=== PATIENT | male | born 1965 | race Caucasian/White ===

== ENCOUNTER 2016-09-21 16:49 | Inpatient (IN) | payer OTHER ==
[~2016-09-21] VITALS: Ht 167.6 cm; Wt 90.7 kg
--- NOTE | 2016-09-21 16:59 | NUR ---
PT C/O CASAS THAT STARTED A COUPLE OF HOURS AGO.. PT ALSO C/O HAVING NO FEELING IN HIS LEFT ARM SINCE HE WOKE THIS AM. PT STATES HE ALSO HAS NUMBNESS IN HIS RIGHT HAND ONLY "FEELS LIKE THEY ARE ASLEEP". NO PROBLEMS WITH BILAT LOWER EXT. PT AMBULATED TO TRIAGE. PT DENIES CHEST PAIN OR SOB
--- NOTE | 2016-09-21 18:58 | NUR ---
PA STUDENT AT BEDSIDE FOR EVAL. PT REPORTS CASAS THAT STARTED "A FEW HOURS HOME THEATER EXPERIENCE EXPERT." PT DID NOT TAKE ANYTHING AT HOME FOR CASAS HOME THEATER EXPERIENCE EXPERT. "I JUST CAME STRAIGHT HERE." PT ALSO COMPLAINING OF BILATERAL UPPER EXTREMITIES "FEELING LIKE THEY'RE ASLEEP." PT REPORTS THAT HE IS UNABLE TO GRASP ANYTHING. PT ABLE TO GRAB AND HOLD BAG THAT HE BROUGHT WITH HIM FROM HOME WITHOUT ISSUE. AWAKE/ALERT WITH EASY WOB. A&0X3.
[2016-09-21] MEDS ORDERED: ATORVASTATIN CA40 M1 PO (19:09)
[2016-09-21] MEDS ORDERED: MULTI-DAY VITA1 EACH PO (19:10)
[2016-09-21] MEDS ORDERED: LOSARTAN POTAS100 M1 PO (19:10)
[2016-09-21] MEDS ORDERED: METFORMIN HCL1000 M1 PO (19:10)
--- NOTE | 2016-09-21 19:11 | ED HEADACHE COMPLAINT ---
History of Present Illness General Chief Complaint: Headache Stated Complaint: HEADACHE, L & R ARM NUMBNESS SINCE THIS AM Source: patient Exam Limitations: no limitations Vital Signs & Intake/Output Vital Signs & Intake/Output Vital Signs Date Time Temp Pulse Resp B/P B/P Pulse O2 O2 Flow FiO2 Mean Ox Delivery Rate 09/22 2147 97.2 92 20 148/85 95 Room Air 09/21 1906 Room Air 09/21 1700 97.4 116 16 161/91 96 Room Air ED Intake and Output 09/22 0000 09/21 1200 Intake Total Output Total Balance Patient 203 lb Weight Weight Reported by Patient Measurement Method Allergies Coded Allergies: No Known Allergies (09/21/16) Reconcile Medications Atorvastatin Calcium 40 MG TABLET 1 TAB PO DAILY CHOLESTEROL (Reported) Losartan Potassium 100 MG TABLET 1 TAB PO DAILY HEART/BP (Reported) Metformin HCl 1,000 MG TABLET 1 TAB PO BID DM (Reported) Multivitamin (Multi-Day Vitamins) 1 EACH TABLET 1 TAB PO DAILY SUPPLEMENT ( Reported) Triage Note: PT C/O CASAS THAT STARTED A COUPLE OF HOURS AGO.. PT ALSO C/O HAVING NO FEELING IN HIS LEFT ARM SINCE HE WOKE THIS AM. PT STATES HE ALSO HAS NUMBNESS IN HIS RIGHT HAND ONLY "FEELS LIKE THEY ARE ASLEEP". NO PROBLEMS WITH BILAT LOWER EXT. PT AMBULATED TO TRIAGE Triage Nurses Notes Reviewed? yes Onset: Abrupt Duration: hour(s): Timing: single episode today Quality/Severity: moderate No Modifying Factors: none Associated Symptoms: numbness and weakness HPI: 51 yo gentleman presents with left arm weakness and numbness as well as right hand weakness and numbness. "I woke up this morning and I realize that I couldn 't move my left hand... my right hand is affected too... It also feels like numbness and tingling." Past History Travel History Traveled to [place] past 21 day No Medical History Any Pertinent Medical History? see below for history Cardiovascular: hypertension, hyperlipidemia Endocrine: diabetes Surgical History Surgical History: none Psychosocial History What is your primary language Ukrainian Tobacco Use: Never used ETOH Use: heavy use Illicit Drug Use: denies illicit drug use Family History Hx Contributory? No Review of Systems Review of Systems Constitutional: Reports: no symptoms. Eyes: Reports: no symptoms. Ears, Nose, Throat, Mouth: Reports: no symptoms. Respiratory: Reports: no symptoms. Cardiovascular: Reports: no symptoms. Gastrointestinal/Abdominal: Reports: no symptoms. Genitourinary: Reports: no symptoms. Musculoskeletal: Reports: no symptoms. Skin: Reports: no symptoms. Neurological/Psychological: Reports: no symptoms. Hematologic/Endocrine: Reports: no symptoms. Endocrine: Reports: no symptoms. Immunologic/Allergic: Reports: no symptoms. All Other Systems: Reviewed and Negative Physical Exam Physical Exam General Appearance: well developed/nourished, mild distress Head: atraumatic, normal appearance Eyes: Bilateral: normal appearance, PERRL, EOMI. Ears, Nose, Throat: normal pharynx, normal ENT inspection Neck: normal inspection, supple, full range of motion Respiratory: normal breath sounds, chest non-tender, no respiratory distress, quiet respiration, lungs clear Cardiovascular: regular rate/rhythm Gastrointestinal: normal bowel sounds, soft, non-tender, no organomegaly Back: normal inspection Extremities: normal inspection, normal capillary refill, normal range of motion Psychiatric: awake, alert, oriented x 3 Cranial Nerves: LEFT HAND WITH 4/5 STRENGTH, LEFT ELBOW 4+/5 STRENGTH RIGHT HAND 4+/5 STRENGTH, RIGHT ELBOW 5/5 STRENGTH. PT WITH SUBJECTIVE DECREASED SENSATION ALONG LATERAL ASPECT OF LEFT ARM DECREASED SENSATION OF RIGHT HAND. STRENGTH, DTRS, LIGHT TOUCH OF LOWER EXTREMITIES INTACT BILATERALLY Coordination/Gait: MILD UNCOORDINATION OF LEFT HAND Reflexes: 1+: bicep (R), bicep (L). Skin: intact, normal color, warm/dry Core Measures Severe Sepsis Present: No Septic Shock Present: No Progress Differential Diagnosis: cva vs tia Plan of Care: Orders Procedure Date/time Status Heart Healthy Diet 09/22 B Active LIPID PANEL 09/22 599 Active CBC WITHOUT DIFFERENTIAL 09/22 599 Active BASIC ELECTROLYTES PLUS BUN&CR 09/22 599 Active Pathway - chart 09/21 2306 Active House Staff 09/21 230 Active Admit to inpatient 09/22 2255 Active [id number] DOPPLER 09/21 2252 Active FingerStick- Glucose 09/21 2252 Active ECHOCARDIOGRAM 09/21 2252 Active Patient Data 09/21 2144 Active Saline Lock 09/21 2122 Active Misc Message 09/21 2122 Active ED Holding Orders 09/21 2122 Active Vital Signs 09/21 2122 Active Code Status 09/21 2122 Active TROPONIN LEVEL 09/21 1932 Complete PARTIAL THROMBOPLASTIN TIME 09/21 1932 Complete PROTHROMBIN TIME 09/21 1932 Complete COMPREHENSIVE METABOLIC PANEL 09/21 1932 Complete CBC WITHOUT DIFFERENTIAL 09/21 1932 Complete EKG 09/21 1932 Active VTE Mechanical Prophylaxis 09/21 UNK Active Current Medications Sig/Nadia Start time Last Medication Dose Stop Time Status Admin Atorvastatin Calcium 80 MG 1700 09/22 1700 AC (Lipitor) Aspirin 81 MG DAILY 09/22 1000 AC (Aspirin) Multivitamins 1 TAB DAILY 09/22 1000 AC Therapeutic (Theragran-M Vitamins Tabs) Insulin Aspart 0 TIDAC 09/22 0800 AC (NovoLOG) Acetaminophen 650 MG Q6P PRN 09/21 2315 AC (Tylenol) Acetaminophen 1,000 MG Q6P PRN 09/21 2315 AC (Ofirmev) Oxycodone/ 1 TAB Q6P PRN 09/21 2315 AC Acetaminophen (Percocet) Sodium Chloride 1,000 ML .Q10H 09/21 2300 AC 09/21 (Normal Saline 0.9%) 09/22 1859 2355 Laboratory Tests 09/21/162031: Anion Gap 16, Estimated GFR > 60, BUN/Creatinine Ratio 24.3, Glucose 174 H, Calcium 9.4, Total Bilirubin 0.8, AST 36, ALT 40, Alkaline Phosphatase 47, Troponin I < 0.01, Total Protein 7.8, Albumin 4.7, Globulin 3.1, Albumin/ Globulin Ratio 1.5, PT 12.4, INR 1.18 H, APTT 27, CBC w Diff NO MAN DIFF REQ, RBC 4.87, MCV 89.8, MCH 30.7, RDW 12.7, MPV 7.6, Gran % 79.5 H, Lymphocytes % 14.6 L, Monocytes % 5.1, Eosinophils % 0.1, Basophils % 0.7, Absolute Granulocytes 11.9 H, Absolute Lymphocytes 2.2, Absolute Monocytes 0.8 H, Absolute Eosinophils 0, Absolute Basophils 0.1, PUBS MCHC 34.2 Diagnostic Imaging: Viewed by Me: Radiology Read, CT Scan. Discussed w/RAD: Radiology Read, CT Scan. Radiology Impression: head ct/cervical ct... no acute fx, no acute bleed Initial ED EKG: normal axis, normal intervals, normal p-waves, normal QRS complex, normal sinus rhythm Comments: PATIENT: LOLLY LOZANO PRESENT AGE: 51 PATIENT ACCOUNT NO: [id number] : 65 LOCATION: [facility] ORDERING PHYSICIAN: DAVIDA MCLEAN MD SERVICE DATE: 09/21/16 EXAM TYPE: CAT - CT CERV SPINE WO IV CONTRAST; CT HEAD WO IV CONTRAST EXAMINATION: CT HEAD AND CERVICAL SPINE. CLINICAL INFORMATION: Left-handed weakness and numbness. COMPARISON: No relevant prior imaging available. TECHNIQUE: Camp Attendant images were obtained. A CT acquisition of the head and cervical spine was performed without intravenous administration of contrast. Data was reformatted into multiplanar images at the acquisition workstation. DLP: 960.6 mGy-cm. FINDINGS: Head: There is no acute intracranial hemorrhage or abnormal extra-axial collection. No intracranial mass effect or midline shift. Lateral and third ventricles are proportionate to the subarachnoid spaces. No hydrocephalus. Cottrell-white matter differentiation is preserved and there is no evidence of acute territorial infarct. The calvarium and skull base are intact. Mastoid air cells and middle ear cavities are well aerated. Visualized paranasal sinuses are well-aerated. Globes and orbits are symmetric. Cervical spine: There is nonspecific straightening of cervical lordosis. Vertebral alignment is otherwise maintained in the sagittal dimension. Vertebral body heights are preserved. There is no evidence of acute fracture or subluxation. No abnormal prevertebral soft tissue swelling. There is narrowing of the intervertebral disc spaces at multiple levels with associated disc osteophyte spurring. Grossly no evidence of canal compromise. Soft tissues of the neck including the thyroid gland are unremarkable. Lung apices are clear. IMPRESSION: Head: No acute intracranial hemorrhage. Cervical spine: There is multilevel degenerative spondylosis of the cervical spine. No evidence of acute fracture or traumatic subluxation. DICTATED BY: ANASTASIA TRAN MD DATE/TIME DICTATED:09/21/162039 VEHICLE INSURANCE AGENT:EULALIA DATE/TIME TRANSCRIBED:09/21/162039 CONFIDENTIAL, DO NOT COPY WITHOUT APPROPRIATE AUTHORIZATION. <Electronically signed in Other Vendor System> SIGNED BY: ANASTASIA TRAN MD 09/21 Departure Departure Disposition: HOME OR SELF CARE Condition: Stable Clinical Impression Primary Impression: CVA (cerebral vascular accident) Referrals: UNKNOWN (PCP/Family) Departure Forms: Customer Survey General Discharge Information Admission Note Spoke With: TONY SAHU MD Documentation of Exam: Documentation of any treatments & extenuating circumstances including Concerns Regarding Discharge (functional status, medication knowledge or non-compliance, living conditions, etc.) that warrant an admission rather than observation: pt merits admission for neuro evaluation, aspirin, mri/mra.
--- NOTE | 2016-09-21 20:35 | RADIOLOGY REPORT ---
EXAMINATION:\H\ \N\XR CHEST CLINICAL INFORMATION: Concern for acute stroke. COMPARISON: None. TECHNIQUE: Single AP view of the chest was obtained. FINDINGS: The lungs are hypoinflated but clear without focal airspace consolidation. No pleural effusions or pneumothoraces are identified. Cardiomediastinal contours are within normal limits. Soft tissues are unremarkable. No acute osseous abnormality is identified. IMPRESSION: No acute pulmonary process.
[2016-09-21 20:41] LABS: ABSOLUTE BASOPHIL COUNT 0.1 /CUMM (0.0-0.2); ABSOLUTE EOSINOPHIL COUNT 0 /CUMM (0.0-0.7); ABSOLUTE GRANULOCYTE CT 11.9 /CUMM (1.4-6.5); ABSOLUTE LYMPH COUNT 2.2 /CUMM (1.2-3.4); ABSOLUTE MONOCYTE COUNT 0.8 /CUMM (0.10-0.60); BASOPHIL % 0.7 % (0.0-2.0); EOSINOPHIL % 0.1 % (0-5); GRANULOCYTE % 79.5 % (42.2-75.2); HEMATOCRIT 43.7 % (42-52); MEAN CORPUSCULAR HGB 30.7 PG (27.0-31.0); MEAN CORPUSCULAR HGB CONC 34.2 G/DL (33.0-37.0); MEAN CORPUSCULAR VOLUME 89.8 FL (80.0-94.0); MEAN PLATELET VOLUME 7.6 FL (7.4-10.4); PLATELET COUNT 323 /CUMM (130-400); RBC DISTRIBUTION WIDTH 12.7 % (11.5-14.5); RED BLOOD CELL CT 4.87 /CUMM (4.70-6.10); WHITE BLOOD CELL COUNT 14.9 /CUMM (4.8-10.8)
[2016-09-21 20:51] LABS: PT 12.4 SEC (9.4-12.5); PTT 27 SEC (25-37)
--- NOTE | 2016-09-21 20:51 | CT SCAN REPORT ---
EXAMINATION: CT HEAD AND CERVICAL SPINE. CLINICAL INFORMATION: Left-handed weakness and numbness. COMPARISON: No relevant prior imaging available. TECHNIQUE: Job Press Feeder images were obtained. A CT acquisition of the head and cervical spine was performed without intravenous administration of contrast. Data was reformatted into multiplanar images at the acquisition workstation. DLP: 960.6 mGy-cm. FINDINGS: Head: There is no acute intracranial hemorrhage or abnormal extra-axial collection. No intracranial mass effect or midline shift. Lateral and third ventricles are proportionate to the subarachnoid spaces. No hydrocephalus. Cottrell-white matter differentiation is preserved and there is no evidence of acute territorial infarct. The calvarium and skull base are intact. Mastoid air cells and middle ear cavities are well aerated. Visualized paranasal sinuses are well-aerated. Globes and orbits are symmetric. Cervical spine: There is nonspecific straightening of cervical lordosis. Vertebral alignment is otherwise maintained in the sagittal dimension. Vertebral body heights are preserved. There is no evidence of acute fracture or subluxation. No abnormal prevertebral soft tissue swelling. There is narrowing of the intervertebral disc spaces at multiple levels with associated disc osteophyte spurring. Grossly no evidence of canal compromise. Soft tissues of the neck including the thyroid gland are unremarkable. Lung apices are clear. IMPRESSION: Head: No acute intracranial hemorrhage. Cervical spine: There is multilevel degenerative spondylosis of the cervical spine. No evidence of acute fracture or traumatic subluxation.
--- NOTE | 2016-09-21 21:43 | NUR ---
PT RESTING COMFORTABLY, OFFERS NO ADDITIONAL COMPLAINTS.
--- NOTE | 2016-09-21 23:03 | NUR ---
MOVED TO ROOM 4 AND PLACED ON HOSPITAL BED FOR COMFORT.
--- NOTE | 2016-09-21 23:26 | History & Physical ---
CHER FUCHS 09/21/16 2326: General Information and HPI MD Statement: I have seen and personally examined LOLLY PANIAGUA and documented this H&P. The patient is a 51 year old M who presented with a patient stated chief complaint of left arm weakness, numbness and right hand numbness since morning Source of Information: patient Exam Limitations: no limitations History of Present Illness: This is a 51-year-old male with past medical history significant for hypertension, hyperlipidemia, diabetes mellitus presented to Hospital emergency department with chief complaint of left arm,hand weakness, numbness and right hand numbness. According to the patient, he reported left arm and hand weakness associated with numbness and tingling sensation, which started all of a sudden early in the morning after waking up. He couldn't grasp or squeeze. He feels as if he lost his strength. Also he complains right hand numbness and tingling sensation. Denies any weakness in lower extremities. Patient denies any sensory changes. Also reports headache, 3 out of 10, frontal, nonradiating. Not associated with any fever, chills, neck pain. Denies any neck stiffness. Denies any trauma. Patient denies any vision changes or gait abnormalities. Denies any syncopal episodes/ seizures/ loss of consciousness/dizziness or lightheadedness. Denies any chest pain, racing heart, difficulty breathing, cough, nausea, vomiting, abdominal pain, change in bladder or bowel habits. He follows his primary care doctor for blood sugars management. He usually checks blood sugars daily at home which ranges between 150 to 230. He couldnt provide much information about HbA1c levels. Patient denies any smoking. He has history of alcohol intake 3-4 beers 4 times in a week. Denies any other illicit drug abuse. He lives with his girlfriend. Patient has family history significant for colon cancer and father has heart attack at 70s. Allergies/Medications Allergies: Coded Allergies: No Known Allergies (09/21/16) Home Med list Atorvastatin Calcium 40 MG TABLET 1 TAB PO DAILY CHOLESTEROL (Reported) Losartan Potassium 100 MG TABLET 1 TAB PO DAILY HEART/BP (Reported) Metformin HCl 1,000 MG TABLET 1 TAB PO BID DM (Reported) Multivitamin (Multi-Day Vitamins) 1 EACH TABLET 1 TAB PO DAILY SUPPLEMENT ( Reported) Compliance With Home Meds: GOOD Past History Travel History Traveled to [place] past 21 day No Medical History Cardiovascular: hypertension, hyperlipidemia Endocrine: diabetes Surgical History Surgical History: none Past Family/Social History Psychosocial History Smoking Status: Never Smoked ETOH Use: heavy use Illicit Drug Use: denies illicit drug use Review of Systems Review of Systems Constitutional: Denies: chills, malaise, weakness, unexplained weight loss. EENTM: Denies: see HPI. Cardiovascular: Denies: chest pain, edema, orthopena, palpitations, peripheral edema, syncope. Respiratory: Denies: cough, hemoptysis, orthopnea, short of breath, sputum production. GI: Denies: abdominal pain, bloating, constipation, diarrhea, nausea, bloody stool, vomiting. Genitourinary: Denies: discharge, dysuria, frequency, hematuria. Musculoskeletal: Denies: back pain, gout, joint pain. Skin: Denies: see HPI. Neurological/Psychological: Reports: headache, numbness, paresthesia, tingling, weakness. Denies: anxiety, ataxia, confusion, depressed, dementia, emotional problems, tremors. Exam & Diagnostic Data Last 24 Hrs of Vital Signs/I&O Vital Signs Date Time Temp Pulse Resp B/P B/P Pulse O2 O2 Flow FiO2 Mean Ox Delivery Rate 09/21 2148 97.2 92 20 148/85 95 Room Air 09/21 1906 Room Air 09/21 1700 97.4 116 16 161/91 96 Room Air Intake & Output 09/22 0800 05/02 0000 09/21 1600 Intake Total Output Total Balance Patient 92.079 kg Weight Weight Reported by Patient Measurement Method Physical Exam General Appearance Alert, Oriented X3, Cooperative, No Acute Distress Skin No Rashes, No Breakdown HEENT Atraumatic, PERRLA, EOMI, Mucous Membr. moist/pink Neck Supple, No JVD, No thryomegaly Lymphatic Axillary nl, Cervical nl Cardiovascular Regular Rate, Normal S1, Normal S2, No Murmurs Lungs Clear to Auscultation, Normal Air Movement Abdomen Normal Bowel Sounds, Soft, No Tenderness Neurological Normal Gait, Normal Speech, Normal Tone, Sensation Intact, Cranial Nerves 3-12 NL, Reflexes 2+, strength 5/5 in le strength 4/5 left upper ext strength 5/5 right upper ext Extremities No Clubbing, No Cyanosis, No Edema Vascular Normal Pulses, Pulses Symmetrical Last 24 Hrs of Labs/Jacky: Laboratory Tests 09/21/162031: Anion Gap 16, Estimated GFR > 60, BUN/Creatinine Ratio 24.3, Glucose 174 H, Calcium 9.4, Total Bilirubin 0.8, AST 36, ALT 40, Alkaline Phosphatase 47, Troponin I < 0.01, Total Protein 7.8, Albumin 4.7, Globulin 3.1, Albumin/ Globulin Ratio 1.5, PT 12.4, INR 1.18 H, APTT 27, CBC w Diff NO MAN DIFF REQ, RBC 4.87, MCV 89.8, MCH 30.7, RDW 12.7, MPV 7.6, Gran % 79.5 H, Lymphocytes % 14.6 L, Monocytes % 5.1, Eosinophils % 0.1, Basophils % 0.7, Absolute Granulocytes 11.9 H, Absolute Lymphocytes 2.2, Absolute Monocytes 0.8 H, Absolute Eosinophils 0, Absolute Basophils 0.1, PUBS MCHC 34.2 Assessment/Plan Assessment: This is a 51-year-old male with past medical history significant for hypertension, hyperlipidemia, diabetes mellitus presented to Hospital emergency department with chief complaint of left arm,hand weakness, numbness and right hand numbness. Vitals on admission, 97.4, heart rate 116, surgery rate 16, blood pressure 161/ 91 saturating well on room air. Labs on admission-leukocytosis 14.9, hemoglobin 15, platelets 323. BEP normal Glucose [address] was normal. Cervical CT showed degenerative spondylosis of cervical spine Chest x-ray was normal Patient received 325 mg aspirin in the emergency room Problem list 1. Acute CVA versus TIA 2. Hypertension 3. Diabetes mellitus 4. Hyperlipidemia Acute CVA versus TIA According to the patient, he reported left arm and hand weakness associated with numbness and tingling sensation, which started all of a sudden early in the morning after waking up. He couldn't grasp or squeeze. He feels as if he lost his strength. Also he complains right hand numbness and tingling sensation. Denies any weakness in lower extremities. Patient denies any sensory changes. * Most possibly acute CVA versus TIA. Patient has all the risk factors- hypertension, uncontrolled diabetes, hyperlipidemia. * Admitted to telemetry floor for further management. * Monitor vitals closely every shift * Maintain oxygen saturations above 90% * Monitor for any dysrhythmias * Neuro checks * He is out of window for TPA * Consider MRI head and neck , * CT was negative for any hemorrhage or infarct * We'll continue aspirin 81 mg daily * Atorvastatin 80 mg daily * Check HbA1c * check lipid panel * CAROTID ARTERY ultrasound * Echocardiogram * Gentle IV hydration * Neurology consult * PTOT Hypertension * Patient usually takes losartan 100 mg daily at home * As we are considering his presentation as an ischemic CVA, our goal systolic blood pressure should be between 150-220 to allow for permissive HTN-We will hold off his antihypertensives for now. * We will investigate the patency of his carotids with a carotid U/S. Diabetes mellitus * On metformin thousand milligrams twice a day at home * We'll hold off metformin * Accu-Cheks * Insulin NovoLog sliding scale Hyperlipidemia * Atorvastatin 80 mg daily FULL CODE Heart healthy diet ALPS for dvt ppx avoiding heparin in case he dose have an ischemic CVA - risk of conversion pain path . As Ranked By This Provider Problem List: 1. CVA (cerebral vascular accident) Core Measures/Miscellaneous Acute Coronary Syndrome ACS Diagnosis: No Cerebrovascular Accident CVA/TIA Diagnosis: Yes NIH Stroke Scale: Total 0 Date Last Known Well: 09/21/16 Time Last Known Well: 0600 Neurological S/S of CVA: Weakness of Limb Symptom Start Date: 09/21/16 Symptom Start Time: 0600 Reason tPA not ordered Medical Contraindication Bedside Swallow Eval Done: Yes Result of Evaluation: Pass Antithrombotic: No No Antithrombotic d/t: Medical Contraindication AFIB: No Aflutter: No Anticoagulant: No No Anticoag d/t: Medical Contraindication Evidence of Atherosclerosis: No LDL Assessed Within 24 Hours: Yes Currently on Statin: Yes No Statin d/t: Medical Contraindications Rehab Needs Assessed: Medical Eval for Rehab PT Consult Ordered: Yes Congestive Heart Failure CHF Diagnosis: No Venous Thromboembolism VTE Risk Factors: Age > 40 No [facility] VTE prophylaxis d/t: No contraindications No VTE Pharm Prophylaxis d/t: No contraindications VTE Diagnosis: No VTE Type: NONE VTE Confirmed by (Test): NONE Severe Sepsis Severe Sepsis Present: No Septic Shock Septic Shock Present: No Miscellaneous Documentation Attending Case Discussed With: TONY SAHU MD Primary Care Physician: UNKNOWN Patient sees these Specialists none Level of Patient Care: Telemetry SARAI GARCIA 09/22/16 0028: Resident Review Statement Resident Statement: examined this patient, discussed with music industry internship, agreed with music industry internship, discussed with family, reviewed images Other Findings: Mr. Paniagua is a 51-year-old gentleman with significant past medical history of diabetes, hypertension, hyperlipidemia presents with hospital emergency department with complaints of left arm paresthesias, along with right hand paresthesias. He states that this started this morning when he woke up he immediately noticed left arm paresthesias and weakness. He also noted similar complaints to on his right side however he only localizes it to the right hand. He states that he is never experienced symptoms like this before. 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 He denies any chest pain, dyspnea, palpitations, lightheadedness, dizziness, diplopia or tinnitus. He also denies any fevers, chills, diaphoresis, nausea or vomiting, as well as diarrhea. He denies any recent travel or sick contacts Vitals on admission, 97.4, heart rate 116, surgery rate 16, blood pressure 161/ 91 saturating well on room air. Physical examination: Neuro exam significant for horizontal nystagmus when looking right. Right-sided tongue deviation when the patient is asked to protrude his time however he is able to move it left to right and right to left without any difficulty. No uvular deviation. No facial droop, sensation intact bilaterally. The remaining cranial nerves are grossly intact. 4 out of 5 strength in all muscle groups in the left arm. 5 out of 5 strength in the right arm. No pronator drift appreciated, however patient wasn' t able to hold his left arm completely up for the entirety of the exam. Sensation intact bilaterally in the upper extremities. No lower extremity weakness or diminished sensation. Impaired [id number] on the left, as well as dysdiadochokinesia. Heel to martins within normal limits. Negative Romberg sign. Patient was walked and no ataxia or instability was noted. No midline or lateral cervical spine tenderness noted. Symptoms were not worse on neck flexion or extension or rotation. The remainder of physical exam was negative as dictated above. No acute findings in the head or neck CT, although chronic degenerative spondylosis changes were noted in the cervical spine. Labs as dictated above. Problem list assessment and plan Acute onset weakness/paresthesias * Given the acuity and persistence of the patient's symptoms, TIA versus CVA must be considered on the differential diagnosis. Additionally, cervical spine injury/spinal compression must also be considered. In order to fully evaluate both, the patient will need a head and neck MRI, and this should be considered if the patient's symptoms do not resolve in the morning. The patient is out of the window for thrombolysis, and stat imaging would not change our plan of care at the moment. * He does have multiple risk factors for a vascular event, including DM, HTN and HLD. Additionally, his symtoms could have arisen (although less likely) from a dysrhythmia, therefore, we will admit to telemetry for monitoring/evaluation of any dysrhythmias. * Given CT findings, this is most likely secondary to an embolic process. Patient did take a full dose aspirin in the ED, and we will continue 81mg daily. We will also dose Atorvastatin 80mg daily (up from 40mg home dose) and check a lipid panel in the am. * As we are considering his presentation as an ischemic CVA, our goal systolic blood pressure should be between 150-220 to allow for permissive HTN. We will hold off his antihypertensives for now. We will investigate the patency of his carotids with a carotid U/S. If the patients clinical presentation worsens, please consider further imaging of the head with a MRI tomorrow morning and possibly an EEG to rule out any underlying seizure activity (although less likely). A complex migraine must also be considered in his work-up, but this is less likely given his characterization of the headache, and how mild and short- lvied it was. * Neuro consult placed and appreciated. DM * We will hold metformin and place the pt on a novolog sliding scale with fingersticks TIDACHS HTN * hold losartan for permissive HTN FULL CODE Heart healthy diet ALPS for dvt ppx avoiding heparin in case he dose have an ischemic CVA - risk of conversion pain path TONY SAHU 09/22/16 0338: Attending MD Review Statement Attending Statement Attending MD Statement: examined this patient, discuss w/resident/PA/BRIDGE CRANE OPERATOR, agreed w/resident/PA/BRIDGE CRANE OPERATOR, discussed with family, reviewed EMR data (avail), reviewed images, amended to note Attending Assessment/Plan: CC: Left arm numbness and weakness since morning PMH: HTN, DM, HLD Patient woke up with left arm numbness, tingling, weakness. It persisted whole day, he also noticed some right hand numbness. 2 hours prior to arrival to ER he noticed headache. No resolution of symptoms, no speech abnormality, no drooling or drooping, no loss of consciousness, presyncopal symptoms, palpitations, chest pain, gait abnormality, vision problems. Vitals: Afebrile, HR 116 on presentation, decreased to 90s, RR 16, blood pressure 161/91, saturating well on room air. On examination: A O 3, cooperative, no acute distress, neck supple, JVD normal, no lymphadenopathy, mucosa moist, right upper extremity weakness with proximal and distal muscle groups, no obvious pronator drift but patient drops his hand up on prolonged extension, 4/5 hand coverstitch binder strength on left, cranial nerves intact , sensation is intact. ? Past-pointing on left side probably secondary to weakness. Gait normal. no dependent edema, no obvious skin rashes or inflammation CVS: S1-S2, RRR. RS: Clear to auscultate bilaterally. Abdomen: Soft , NT, ND, bowel sounds present. Labs: WBC 14.9, neutrophils 79% BMP and LFT unremarkable, troponin less than 0.01 EKG: Normal sinus rhythm CXR: No acute cardiopulmonary process CT head and cervical spine without IV contrast: 1. No acute intracranial hemorrhage 2. There is multilevel degenerative spondylosis of the cervical spine. No evidence of acute fracture or traumatic subluxation. A and P Patient had focal left upper extremity weakness 4/5 in all muscle groups, associated with tingling numbness. He also complains of some tingling numbness in her right hand. Unusual constellation of symptoms but his significant risk factors including hypertension, diabetes, dyslipidemia and significant family history for coronary artery disease CVA should be ruled out patient would need MRI of brain and cervical spine. Patient does not have any point tenderness in neck, no radiating pain. Neurologist was called from ER for opinion regarding obtaining CTA head and neck, and urgency MRI of brain. Patient already out of window for TPA. # Left upper extremity weakness: TIA versus CVA # History of hypertension, HLD, DM - Admit to telemetry - Continuous telemetry monitoring - Neurochecks every 4 hours - Hold antihypertensives, continue permissive hypertension - Continue aspirin, high-intensity statin - Bedside swallow evaluation - Sliding scale insulin for diabetes - Neurologic consult - Carotid Doppler - 2-D echocardiogram - OT PT evaluation - When necessary Ativan according to CILA protocol, by mouth thiamine, folic acid - DVT prophylaxis with Lovenox
[2016-09-22 01:58] VITALS: BP 132/79
--- NOTE | 2016-09-22 01:59 | NUR ---
SLEEPING SOUNDLY, SNORING. AWAKENED FOR VITAL SIGNS. DENIES PAIN.
--- NOTE | 2016-09-22 03:39 | Admission Certification ---
Admission Certification Certification Statement - As attending physician, I certify that at the time of - admission, based on clinical presentation, severity of - symptoms, need for further diagnostic testing and - therapeutic interventions, and risk of adverse outcomes - without in-hospital treatment, in my clinical assessment, - this patient requires an acute hospital stay for a minimum - of two nights or longer. I have also considered psychsocial - factors such as support system, advanced age, financial - issues, cognitive issues, and failed out-patient treatments, - past re-admission history, safety of patient, and lack of - compliance as applicable. Specific rationale supporting this admission is: Left upper extremity weakness
--- NOTE | 2016-09-22 05:39 | NUR ---
PATIENT CONTINUES TO SLEEP AT THIS TIME W/ REGULAR RESPIRATIONS NOTED. HR: 76 ON MONITOR, SINUS.
--- NOTE | 2016-09-22 06:12 | NUR ---
AWOKE PATIENT TO OBTAIN AM VS. PATIENT CONTINUES W/ L HAND MUSCLE GRASP WEAKNESS, NO WEAKNESS NOTED TO BILATERAL LOWER EXT. SPEECH CLEAR. PATIENT DENIES COMPLAINTS. REMAINS ON APIGEE DEVELOPER, HR: 95 NSR.
[2016-09-22 06:24] LABS: ABSOLUTE BASOPHIL COUNT 0.1 /CUMM (0.0-0.2); ABSOLUTE EOSINOPHIL COUNT 0.1 /CUMM (0.0-0.7); ABSOLUTE LYMPH COUNT 2.8 /CUMM (1.2-3.4); BASOPHIL % 1.3 % (0.0-2.0); EOSINOPHIL % 1.3 % (0-5); GRANULOCYTE % 62.6 % (42.2-75.2); HEMATOCRIT 41.9 % (42-52); MEAN CORPUSCULAR HGB 30.5 PG (27.0-31.0); MEAN CORPUSCULAR HGB CONC 33.9 G/DL (33.0-37.0); MEAN CORPUSCULAR VOLUME 90.1 FL (80.0-94.0); MEAN PLATELET VOLUME 7.4 FL (7.4-10.4); PLATELET COUNT 284 /CUMM (130-400); RBC DISTRIBUTION WIDTH 12.7 % (11.5-14.5); RED BLOOD CELL CT 4.65 /CUMM (4.70-6.10); WHITE BLOOD CELL COUNT 11.2 /CUMM (4.8-10.8)
--- NOTE | 2016-09-22 06:27 | NUR ---
AM BLOODWORK DRAWN AND SENT TO LAB.
--- NOTE | 2016-09-22 06:41 | NUR ---
POC: PT AND OT EVAL THIS AM. CAROTID U/S THIS AM. MONITOR NIH STROKE SCALES (ORDERED AT 0620 09/22/16 BY HOUSE STAFF).
--- NOTE | 2016-09-22 07:01 | NUR ---
PHYSICAL THERAPY- CONSULT RECEIVED VIA CVA/TIA PATHWAY, CHART REVIEWED. PT W/ L HAND WEAKNESS, NO LOWER EXTREMITY SYMPTOMS PRESENT, AND ABLE TO AMBULATE IN ED W/O DIFFICULTY PER NOTES. NO SKILLED ACUTE P.T. NEEDS IDENTIFIED, O.T. TO FOLLOW FOR EVAL OF HAND/UE SX.
--- NOTE | 2016-09-22 09:00 | NUR ---
PT UP TO BATHROOM, GAIT STEADY. NSR ON MONITOR. OFFERS NO COMPLAINTS AT THIS TIME.
--- NOTE | 2016-09-22 10:45 | PN- Housestaff ---
BRAIN ALBERT 09/22/16 1026: Subjective Follow-up For: CVA Subjective: This morning patient is alert, awake and oriented. He is hemodynamically stable. Patient is still complaining of left arm/hand weakness and numbness and right hand numbness. No new neuro deficits. He denies any dysarthria, vision changes, dysphagia, gait problems. Review of Systems Constitutional: Reports: see HPI. Objective Last 24 Hrs of Vital Signs/I&O Vital Signs Date Time Temp Pulse Resp B/P B/P Pulse O2 O2 Flow FiO2 Mean Ox Delivery Rate 09/22 0956 98.2 87 18 133/98 97 09/22 0610 97.8 85 18 144/92 99 Room Air 09/22 0158 96 16 132/79 96 Room Air 09/21 2148 97.2 92 20 148/85 95 Room Air 09/21 1906 Room Air 09/21 1700 97.4 116 16 161/91 96 Room Air Intake & Output 09/22 1600 09/22 0800 09/22 0000 Intake Total Output Total Balance Patient 203 lb 203 lb Weight Weight Reported by Patient Reported by Patient Measurement Method Physical Exam General Appearance: Alert, Oriented X3, Cooperative, No Acute Distress Skin: No Rashes Cardiovascular: Regular Rate Lungs: Clear to Auscultation Abdomen: Normal Bowel Sounds, Soft, No Tenderness Neurological: Cranial Nerves 3-12 NL, 4/5 strength left arm, 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, sensations intact Extremities: No Edema Current Medications: Current Medications Sig/Nadia Start time Last Medication Dose Route Stop Time Status Admin Acetaminophen 650 MG Q6P PRN 09/21 2315 AC PO Acetaminophen 1,000 MG Q6P PRN 09/21 2315 DC IV Aspirin 81 MG DAILY 09/22 1000 AC PO Aspirin 0 .STK-MED ONE 09/22 2151 DC PO Aspirin 325 MG ONCE ONE 09/21 2129 DC 09/21 PO 09/21 2130 2151 Atorvastatin Calcium 80 MG 1700 09/22 1700 AC PO Atorvastatin Calcium 80 MG ONCE ONE 09/21 2300 DC 09/22 PO 09/21 2301 0001 Enoxaparin Sodium 40 MG DAILY 09/22 1000 CAN SC Enoxaparin Sodium 40 MG DAILY 09/22 1000 AC SC Folic Acid 1 MG DAILY 09/22 1000 AC PO Insulin Aspart 0 TIDAC 09/22 0800 AC SC Lorazepam 0 Q1P PRN 09/22 0600 AC IV Multivitamins 1 TAB DAILY 09/22 1000 AC Therapeutic PO Oxycodone/ 1 TAB Q6P PRN 09/21 2315 DC Acetaminophen PO Sodium Chloride 1,000 ML .Q10H 09/21 2300 AC 09/21 IV 09/22 1859 2355 Thiamine HCl 100 MG DAILY 09/22 1000 AC PO Last 24 Hrs of Lab/Jacky Results Last 24 Hrs of Labs/Mics: Laboratory Tests 09/22/16616: Anion Gap 12, Estimated GFR > 60, BUN/Creatinine Ratio 30.0 H, Triglycerides 113, Cholesterol 140, LDL Cholesterol, Calc 75, HDL Cholesterol 43, Cholesterol/ HDL Ratio 3, CBC w Diff NO MAN DIFF REQ, RBC 4.65 L, MCV 90.1, MCH 30.5, RDW 12.7, MPV 7.4, Gran % 62.6, Lymphocytes % 25.4, Monocytes % 9.4 H, Eosinophils % 1.3, Basophils % 1.3, Absolute Granulocytes 7.0 H, Absolute Lymphocytes 2.8, Absolute Monocytes 1.0 H, Absolute Eosinophils 0.1, Absolute Basophils 0.1, PUBS MCHC 33.9 09/21/162031: Anion Gap 16, Estimated GFR > 60, BUN/Creatinine Ratio 24.3, Glucose 174 H, Calcium 9.4, Total Bilirubin 0.8, AST 36, ALT 40, Alkaline Phosphatase 47, Troponin I < 0.01, Total Protein 7.8, Albumin 4.7, Globulin 3.1, Albumin/ Globulin Ratio 1.5, PT 12.4, INR 1.18 H, APTT 27, CBC w Diff NO MAN DIFF REQ, RBC 4.87, MCV 89.8, MCH 30.7, RDW 12.7, MPV 7.6, Gran % 79.5 H, Lymphocytes % 14.6 L, Monocytes % 5.1, Eosinophils % 0.1, Basophils % 0.7, Absolute Granulocytes 11.9 H, Absolute Lymphocytes 2.2, Absolute Monocytes 0.8 H, Absolute Eosinophils 0, Absolute Basophils 0.1, PUBS MCHC 34.2 Assessment/Plan Assessment: His 51-year-old with past medical history of hypertension, diabetes, hyperlipidemia presented to ER with complaint of left arm numbness and weakness in right hand numbness. He is going to be admitted on telemetry floor for: Problem list 1. CVA--initial CAT scan of head negative--out of window period--Symptoms persisted--no new neuro deficit--FH positive for stroke in father 2. History of alcohol abuse--last drink night before admission 3. Leukocytosis--could be reactive 3. History of hypertension 4. History of hyperlipidemia 5. History of diabetes type 2 PLAN * Monitor vitals * Continue aspirin and high-dose statin * Follow-up ultrasound carotid and echocardiogram * Awaiting neuro consult * MRI tomorrow morning * CIWA protocol and IV Ativan as needed per CIWA * Multivitamins/folic acid/thiamine * Holding antihypertensives for now for permissive hypertension * NovoLog insulin sliding scale * Accu-Cheks before each meal and at bedtime * Diabetic diet * Pain pathway * Subcutaneous Lovenox for DVT prophylaxis * Full code Problem List: 1. CVA (cerebral vascular accident) Pain Ratin Pain Location: none Pain Goal: Remain pain free Pain Plan: tylenol Tomorrow's Labs & Rationales: none DVT/Prophylaxis: pharmacological Consulting Request: Consulting Specialty: Neurology Consulting Physician: Dr. Vallejo Reason for Consult: ZACHERY KINCAID MD,[facility] 09/22/16 1122: Attending MD Review Statement Attending Statement Attending MD Statement: examined this patient, discuss w/resident/PA/COOKING SHOW HOST, agreed w/resident/PA/COOKING SHOW HOST, discussed with family, reviewed EMR data (avail), discussed with nursing, discussed with case mgmt, reviewed images, amended to note Attending Assessment/Plan: patient seen and examined, feels the same. Still complains of numbness in the right hand as well as the left hand and arm. Vital Signs Date Time Temp Pulse Resp B/P B/P Pulse O2 O2 Flow FiO2 Mean Ox Delivery Rate 09/22 1121 98.1 81 20 149/101 09/22 1112 98.1 87 20 49/101 97 Room Air 09/22 0956 98.2 87 18 133/98 97 09/22 0610 97.8 85 18 144/92 99 Room Air 09/22 0158 96 16 132/79 96 Room Air 09/21 2148 97.2 92 20 148/85 95 Room Air 09/21 1906 Room Air 09/21 1700 97.4 116 16 161/91 96 Room Air on exam; aox,3, nad. cv; s1,s2, rrr resp; clear abd; soft, nt, bs+ ext; no edema. neuro: 4/5 strength in lue, left hand. 4.5/5 strengthv in right hand. b/l le strength 5/5. sensations intact in all four extremities but different sensation in b/l UE. Laboratory Tests 09/22 Chemistry Sodium (137 - 145 mmol/L) 142 138 Potassium (3.5 - 5.1 mmol/L) 4.5 4.4 Chloride (98 - 107 mmol/L) 102 97 L Carbon Dioxide (22 - 30 mmol/L) 28 25 Anion Gap (5 - 16) 12 16 BUN (9 - 20 mg/dL) 18 17 Creatinine (0.7 - 1.2 mg/dL) 0.6 L 0.7 Estimated GFR (>60 ml/min) > 60 > 60 BUN/Creatinine Ratio (7 - 25 %) 30.0 H 24.3 Glucose (65 - 99 mg/dL) 174 H Calcium (8.4 - 10.2 mg/dL) 9.4 Total Bilirubin (0.2 - 1.3 mg/dL) 0.8 AST (17 - 59 U/L) 36 ALT (21 - 72 U/L) 40 Alkaline Phosphatase (< 127 U/L) 47 Troponin I (<0.11 ng/ml) < 0.01 Total Protein (6.3 - 8.2 g/dL) 7.8 Albumin (3.5 - 5.0 g/dL) 4.7 Globulin (1.9 - 4.2 gm/dL) 3.1 Albumin/Globulin Ratio (1.1 - 2.2 %) 1.5 Triglycerides (<150 mg/dL) 113 Cholesterol (< 200 MG/DL) 140 LDL Cholesterol, Calc (65 - 129 mg/dL) 75 HDL Cholesterol (40 - 60 mg/dL) 43 Cholesterol/HDL Ratio (0.00 - 4.88 %) 3 Coagulation PT (9.4 - 12.5 SEC) 12.4 INR (0.90 - 1.17) 1.18 H APTT (25 - 37 SEC) 27 Hematology CBC w Diff NO MAN DIFF REQ NO MAN DIFF REQ WBC (4.8 - 10.8 /CUMM) 11.2 H 14.9 H RBC (4.70 - 6.10 /CUMM) 4.65 L 4.87 Hgb (14.0 - 18.0 G/DL) 14.2 15.0 Hct (42 - 52 %) 41.9 L 43.7 MCV (80.0 - 94.0 FL) 90.1 89.8 MCH (27.0 - 31.0 PG) 30.5 30.7 RDW (11.5 - 14.5 %) 12.7 12.7 Plt Count (130 - 400 /CUMM) 284 323 MPV (7.4 - 10.4 FL) 7.4 7.6 Gran % (42.2 - 75.2 %) 62.6 79.5 H Lymphocytes % (20.5 - 51.1 %) 25.4 14.6 L Monocytes % (1.7 - 9.3 %) 9.4 H 5.1 Eosinophils % (0 - 5 %) 1.3 0.1 Basophils % (0.0 - 2.0 %) 1.3 0.7 Absolute Granulocytes (1.4 - 6.5 /CUMM) 7.0 H 11.9 H Absolute Lymphocytes (1.2 - 3.4 /CUMM) 2.8 2.2 Absolute Monocytes (0.10 - 0.60 /CUMM) 1.0 H 0.8 H Absolute Eosinophils (0.0 - 0.7 /CUMM) 0.1 0 Absolute Basophils (0.0 - 0.2 /CUMM) 0.1 0.1 PUBS MCHC (33.0 - 37.0 G/DL) 33.9 34.2 A/P; 51 y/o M with pmh sig for hypertension, hyperlipidemia, diabetes mellitus, admitted with bilateral hand as well as left arm numbness. Question of possible TIA vs CVA. At this point patient to get echo, carotid Doppler. Keep monitoring on telemetry. Aspirin was added and statin dose was increased. We'll allow permissive hypertension. Keep SBP >160. Patient passed swallow evaluation. Patient worked with physical therapy and occupational therapy. Neurology evaluation is pending. Patient will require MRI which will be done tomorrow. Also history of alcohol use. Patient on multivitamin, folate and thiamine as well as CIWA protocol, patient on Ativan per CIWA protocol. DVT Px; Lovenox.
[2016-09-22 11:21] VITALS: BP 149/101
--- NOTE | 2016-09-22 11:25 | NUR ---
PT UPDATED ON POC, NO QUESTIONS AT THIS TIME, VERBALIZES UNDERSTANDING. NSR ON MONITOR.
--- NOTE | 2016-09-22 12:16 | NUR ---
PT RESTING COMFORTABLY, REQUESTED DOOR TO BE CLOSED.
--- NOTE | 2016-09-22 12:37 | NUR ---
EVALUATED BY DR. CARLSON (NEUROLOGY).
--- NOTE | 2016-09-22 12:47 | Cons- Neurology ---
General Information and HPI Consulting Request Date of Consult: 09/22/16 Requested By: SANTIAGO KINCAID MD History of Present Illness: 51-year-old hypertensive, diabetic male was in his usual state of health until having awakened yesterday morning with numbness of the hands bilaterally, left greater than right, weakness of the left upper extremity and some soreness in the proximal left upper extremity. He will admit to having perhaps partaken of too much alcohol on the night prior to symptom onset, falling asleep in a chair for at least several hours. He awakened, realized that he was uncomfortable and was able to get himself to bed however the following morning became aware of his symptoms. There was no associated visual or speech disturbance. He denies any symptoms involving his or impairment of gait. He has no prior history of stroke or TIA. CAT scan of the brain on admission was found to be unrevealing. Allergies/Medications Allergies: Coded Allergies: No Known Allergies (09/21/16) Home Med List: Atorvastatin Calcium 40 MG TABLET 1 TAB PO DAILY CHOLESTEROL (Reported) Losartan Potassium 100 MG TABLET 1 TAB PO DAILY HEART/BP (Reported) Metformin HCl 1,000 MG TABLET 1 TAB PO BID DM (Reported) Multivitamin (Multi-Day Vitamins) 1 EACH TABLET 1 TAB PO DAILY SUPPLEMENT ( Reported) Review of Systems Review of Systems: Negative for recent fever, chills, rash, diplopia, dysarthria, dysphagia, chest pain, shortness of breath, vomiting, vertigo, joint inflammation or bleeding disturbance. Patient will admit to intermittent acral paresthesias of the hands bilaterally, upon awakening Past History Travel History Traveled to [place] past 21 day No Medical History Neurological: NONE EENT: NONE Cardiovascular: hypertension, hyperlipidemia Respiratory: NONE Gastrointestinal: NONE Hepatic: NONE Renal: NONE Musculoskeletal: NONE Psychiatric: NONE Endocrine: diabetes Blood Disorders: NONE Cancer(s): NONE COMMUNICATIONS SUPERINTENDENT/Reproductive: NONE Surgical History Surgical History: 1 Psychosocial History Where Do You Live? Home Smoking Status: Never Smoked ETOH Use: heavy use Illicit Drug Use: denies illicit drug use Exam & Diagnostic Data Vital Signs and I&O Vital Signs Date Time Temp Pulse Resp B/P B/P Pulse O2 O2 Flow FiO2 Mean Ox Delivery Rate 09/22 1121 98.1 81 20 149/101 09/22 1112 98.1 87 20 49/101 97 Room Air 09/22 0956 98.2 87 18 133/98 97 05/ 0610 97.8 85 18 144/92 99 Room Air 09/22 0158 96 16 132/79 96 Room Air 09/21 2148 97.2 92 20 148/85 95 Room Air 09/21 1906 Room Air 09/21 1700 97.4 116 16 161/91 96 Room Air Intake & Output 09/22 1600 / 0800 05 0000 Intake Total Output Total Balance Patient 203 lb 203 lb Weight Weight Reported by Patient Reported by Patient Measurement Method Pleasant middle-aged gentleman in no acute distress. He was awake, alert and cooperative. Higher cortical function was intact. Speech was fluent. The head was normocephalic. His neck was supple. Pupils were equal. Extraocular movements were full. There was no nystagmus. There was no field cut. Facial strength and sensation was intact. Hearing was normal. Tongue was midline. Normal tone and bulk throughout. There was diffuse weakness of the left upper extremity, both proximal and distal. There was 3 over 5 power at the left deltoid and infraspinatus. Biceps, triceps, wrist extensors and hand intrinsics were 4 over 5. The remainder of the manual muscle examination showed no focal weakness. Deep tendon reflexes were hypoactive in the upper extremities. Patella and Achilles reflexes were 2+. Plantar responses were flexor. Sensory examination showed altered light touch diffusely throughout the left upper extremity and the palmar aspect of the right hand. Fine finger movements performed adequately. There was no ataxia on [id number] testing. His gait was narrow based and steady. Phalen sign was positive at the right wrist. Assessment/Plan Assessment: Mr. Benoit presents with an acute monoparesis of the left upper extremity without upper motor neuron abnormalities on examination. 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 The remainder of the examination is intact apart from his distal right upper extremity sensory abnormalities. This might represent carpal tunnel syndrome as patient has had prior symptoms transiently affecting the hands. Both carpal tunnel syndrome and propensity towards pressure palsies are more likely to occur in diabetics. A cervical multi-radiculopathy or cervical myeloradiculopathy remains in the differential diagnosis however this would be considered less likely. I do not believe that this presentation represents stroke syndrome. Recommendations: The patient will need ongoing physical and occupational therapy. An MRI of the cervical spine should be performed however is not urgent. He will also likely benefit from an EMG and nerve conduction study however one would wait approximately 3 weeks following onset of symptoms to properly assess for denervation. We would gladly follow him in the outpatient setting upon discharge from the hospital. I would not anticipate a prolonged hospital stay. Please feel free to call with any further questions. Consult Acknowledgment - Thank you for your consult request.
--- NOTE | 2016-09-22 13:00 | NUR ---
HOUSE STAFF CALLED, OK TO EAT.
--- NOTE | 2016-09-22 13:02 | NUR ---
LUNCH TRAY ORDERED.
--- NOTE | 2016-09-22 13:29 | NUR ---
PT ASSIGNED TO ROOM 174 BED 2
--- NOTE | 2016-09-22 13:31 | NUR ---
PT GOING TO ROOM 174-2.
--- NOTE | 2016-09-22 13:55 | NUR ---
ALPS NOT APPLIED, PT AMBULATORY.
--- NOTE | 2016-09-22 13:58 | NUR ---
REPORT GIVEN TO FERNNADEZ MCCONNELL
[2016-09-22 14:28] VITALS: BP 148/88
[2016-09-22] MEDS ORDERED: ASPIRIN81 M4 PO (15:31)
[2016-09-22] MEDS ORDERED: ATORVASTATIN CA80 M1 PO (15:32)
--- NOTE | 2016-09-22 15:35 | Patient Discharge Instructions ---
Discharge Instructions General Discharge Information You were seen/treated for: ? cva brachial plexopathy Special Instructions: 1. PLEASE FOLLOWUP WITH YOUR REGULAR DOCTOR NEXT WEEK AFTER DISCHARGE 2. PLEASE FOLLOWUP WITH DR. CARLSON NEXT WEEK AFTER DISCHARGE Diet Continue normal diet: Yes Activity Full Activity/No Limits: Yes Acute Coronary Syndrome Inclusion Criteria At DC or during hospital stay patient has or had the following: ACS DIAGNOSIS No Discharge Core Measures Meds if any: Prescribed or Continued at Discharge Meds if any: NOT Prescribed or Continued at Discharge Congestive Heart Failure Inclusion Criteria At DC or during hospital stay patient has or had the following: CHF DIAGNOSIS No Discharge Core Measures Meds if any: Prescribed or Continued at Discharge Meds if any: NOT Prescribed or Continued at Discharge Cerebrovascular accident Inclusion Criteria At DC or during hospital stay patient has or had the following: CVA/TIA Diagnosis No Discharge Core Measures Meds if any: Prescribed or Continued at Discharge Meds if any: NOT Prescribed or Continued at Discharge Venous thromboembolism Inclusion Criteria VTE Diagnosis No VTE Type NONE VTE Confirmed by (Test) NONE Discharge Core Measures - Per Current guidelines, there needs to be overlap - treatment for the first 5 days of Warfarin therapy. - If discharged on Warfarin prior to 5 days of - overlap therapy, the patient will need to be - assessed for post discharge needs including - *Post discharge parental anticoagulation - *Warfarin and/or parental anticoagulation education - *Follow up date to check INR post discharge At least 5 days overlap therapy as Inpatient No Meds if any: Prescribed or Continued at Discharge Note: Overlap Therapy is Warfarin and Anticoagulant Meds if any: NOT Prescribed or Continued at Discharge
--- NOTE | 2016-09-22 16:42 | NUR ---
1420 - PT ARRIVED TO FLOOR, A&OX3, VSS, INDEPENDENT.
[2016-09-23 01:21] VITALS: BP 142/78
--- NOTE | 2016-09-23 08:00 | ULTRASOUND REPORT ---
EXAMINATION: US DUPLEX CAROTID AND VERTEBRAL CLINICAL INFORMATION: 51-year-old male with left arm weakness. Evaluate for carotid artery stenosis. COMPARISON: None TECHNIQUE: Real-time ultrasound and Doppler techniques (integrating B-mode 2D vascular images, Doppler spectral analysis and color flow Doppler imaging) were utilized to interrogate the extracranial carotid and vertebral arteries bilaterally. The degree of stenosis determined by criteria similar to NASCET. FINDINGS: No plaque is seen at the carotid bifurcations or within the internal carotid arteries. All velocities are within normal limits as follows: Right: The common carotid artery velocity is 99 cm/s. The internal carotid artery velocities are 102 cm/s systolic and 25 cm/s diastolic. The external carotid artery velocity is 131 cm/s. Left: The common carotid artery velocity is 128 cm/s. The internal carotid artery velocities are 90 cm/s systolic and 20 cm/s diastolic. The external carotid artery velocity is 130 cm/s. ADDITIONAL FINDINGS: 1. The vertebral arteries show antegrade flow. IMPRESSION: No evidence of a hemodynamically significant stenosis involving the internal carotid arteries.
[2016-09-23 09:00] VITALS: BP 160/84
--- NOTE | 2016-09-23 09:33 | ECHOCARDIOGRAM REPORT ---
LOLLY LOZANO Age: 51 : 1965 Gender: M Exam Date: 09/22/2016 16:29 Exam Location: 1 [address] Ht (in): 66 Wt (lb): 203 BSA: 2.10 BP: 144 / 92 Ordering Physician: SARAI GARCIA MD Referring Physician: SARIA GARCIA MD Technologist: Gale Garza [facility] Room Number: 174-02 Indications: STROKE Rhythm: Technical Quality: Fair FINDINGS Left Ventricle Normal global left ventricular size, wall thickness, systolic function with no obvious regional wall motion abnormalities. Left ventricular ejection fraction is estimated at > 55 %. Right Ventricle Normal right ventricular size and function. Right Atrium Normal right atrial size. Left Atrium Normal left atrial size. Mitral Valve Structurally normal mitral valve. Mild mitral regurgitation. No mitral stenosis. Aortic Valve Trileaflet aortic valve. No aortic stenosis. Tricuspid Valve Structurally normal tricuspid valve. Trace tricuspid regurgitation. Unable to estimate the right ventricular systolic pressure. Pulmonic Valve Pulmonic valve not well visualized, grossly normal. Pericardium No pericardial effusion. Great Vessels Normal size aortic root. CONCLUSIONS Normal global left ventricular size, wall thickness, systolic function with no obvious regional wall motion abnormalities. Left ventricular ejection fraction is estimated at > 55 %. Normal right ventricular size and function. Unable to estimate the right ventricular systolic pressure. No pericardial effusion. Jeffery Summers M.D. (Electronically Signed) Final Date: 23 Sep 2016 09:32 MEASUREMENTS (Male / Female) Normal Values 2D ECHO LV Diastolic Diameter PLAX 4.2 cm 4.2 - 5.9 / 3.9 - 5.3 cm LV Systolic Diameter PLAX 2.7 cm 2.1 - 4.0 cm LV Fractional Shortening PLAX 35.7 % 25 - 46 % LV Ejection Fraction 2D Teich 65.6 % IVS Diastolic Thickness 1.1 cm LVPW Diastolic Thickness 1.0 cm LV Relative Wall Thickness 0.5 RV Internal Dim ED PLAX 2.4 cm 1.9 - 3.8 cm LVOT Diameter 2.2 cm Aortic Root Diameter 3.0 cm LA Systolic Diameter LX 3.8 cm 3.0 - 4.0 / 2.7 - 3.8 cm LA Volume 31.0 cm 18 - 58 / 22 - 52 cm Ascending Aorta Diameter 3.1 cm DOPPLER AV Peak Velocity 158.0 cm/s AV Peak Gradient 10.0 mmHg AV Mean Velocity 109.0 cm/s AV Mean Gradient 5.0 mmHg AV Velocity Time Integral 29.4 cm LVOT Peak Velocity 128.0 cm/s LVOT Peak Gradient 6.6 mmHg LVOT Mean Velocity 73.9 cm/s LVOT Mean Gradient 3.0 mmHg LVOT Velocity Time Integral 20.3 cm LVOT Stroke Volume 77.2 cm AV Area Cont Eq vti 2.6 cm AV Area Cont Eq pk 3.1 cm MV Peak Velocity 127.0 cm/s MV Peak Gradient 6.5 mmHg MV Mean Velocity 66.5 cm/s MV Mean Gradient 2.0 mmHg Mitral E Point Velocity 104.0 cm/s Mitral A Point Velocity 116.0 cm/s Mitral E to A Ratio 0.9 MV PHT Velocity 91.1 cm/s MV Deceleration [place] 495.0 cm/s MV Pressure Half Time 55.2 ms MV Area PHT 4.0 cm MV Deceleration Time 243.0 ms PV Peak Velocity 110.0 cm/s PV Peak Gradient 4.8 mmHg PV Mean Velocity 74.5 cm/s PV Mean Gradient 3.0 mmHg PV Velocity Time Integral 20.6 cm LV E' Lateral Velocity 14.5 cm/s Mitral E to LV E' Lateral Ratio 7.2 LV E' Septal Velocity 9.8 cm/s Mitral E to LV E' Septal Ratio 10.7
--- NOTE | 2016-09-23 10:00 | NUR ---
TO MRI VIA WHEELCHAIR. ALERT ORIENTED. OFF TELE. NO COMPLAINTS
--- NOTE | 2016-09-23 10:50 | PN- Housestaff ---
BRAIN ALBERT 09/23/16 1035: Subjective Follow-up For: CVA vs brachial plexopathy Subjective: No overnight events. This morning patient is feeling little improved. He thinks that his left arm weakness is getting better and his sensations are coming back. He is still feeling pins and needles sensations in his both hands. No new neuro deficits. He is complaining of left arm soreness and muscle tightness. Review of Systems Constitutional: Reports: see HPI. Objective Last 24 Hrs of Vital Signs/I&O Vital Signs Date Time Temp Pulse Resp B/P B/P Pulse O2 O2 Flow FiO2 Mean Ox Delivery Rate 09/23 0900 98.0 87 16 160/84 96 Room Air 09/23 0121 98.3 79 18 142/78 96 Room Air 09/22 1428 98.0 82 18 148/88 95 Room Air 09/22 1121 98.1 81 20 149/101 09/22 1112 98.1 87 20 49/101 97 Room Air Intake & Output 09/23 1600 09/23 0800 09/23 0000 Intake Total 720 Output Total Balance 720 Intake, Oral 720 Physical Exam General Appearance: Alert, Oriented X3, Cooperative, No Acute Distress Neck: Supple Cardiovascular: Regular Rate Lungs: Clear to Auscultation Neurological: Normal Speech, Cranial Nerves 3-12 NL, strength 4/5 left arm Extremities: No Edema Assessment/Plan Assessment: His 51-year-old with past medical history of hypertension, diabetes, hyperlipidemia presented to ER with complaint of left arm numbness and weakness in right hand numbness. He has been admitted on telemetry floor for: Problem list 1. CVA vs peripheral nerve palsy--negative CAT scan of head and cervical spine- -normal carotid ultrasound--normal echocardiogram 2. History of alcohol abuse--last drink night before admission--CIWA score has been zero--did not require IV Ativan 3. Leukocytosis--could be reactive 3. History of hypertension--blood pressure 160/84 this morning 4. History of hyperlipidemia 5. History of diabetes type 2 PLAN * Monitor vitals * Continue aspirin and high-dose statin * Follow-up MRI head and cervical spine today * CIWA protocol and IV Ativan as needed per CIWA * Continue Multivitamins/folic acid/thiamine * Holding antihypertensives for now for permissive hypertension * NovoLog insulin sliding scale * Accu-Cheks before each meal and at bedtime * Diabetic diet * Pain pathway * Subcutaneous Lovenox for DVT prophylaxis * Full code Problem List: 1. CVA (cerebral vascular accident) 2. Nerve palsy Pain Ratin Pain Location: none Pain Goal: Pain 4 or less Pain Plan: tylenol Tomorrow's Labs & Rationales: none DVT/Prophylaxis: pharmacological Consulting Request: Consulting Specialty: Neurology Consulting Physician: Dr. Vallejo Reason for Consult: ZACHERY KINCAID MD,SANTIAGO 09/23/16 1215: Attending MD Review Statement Attending Statement Attending MD Statement: examined this patient, discuss w/resident/PA/TEMPERING OVEN OPERATOR, agreed w/resident/PA/TEMPERING OVEN OPERATOR, reviewed EMR data (avail), discussed with nursing, discussed with case mgmt, reviewed images, amended to note Attending Assessment/Plan: Patient seen and examined, feeling slightly better. Still feels tingling and numbness in her left hand and left arm. Still feels that her left arm is somewhat weak. Carotid ultrasound as well as echocardiogram results are reviewed and are normal. vss. on exam: aox3, nad. cv; s1,s2, rrr resp; clear abd; soft, nt, bs+ ext; no edema. neuro: 4/5 stregnth in lue, unchanged from yesterday. no labs. A/p; 51 y/o M with pmh sig for hypertension, hyperlipidemia, diabetes mellitus, admitted with bilateral hand as well as left arm numbness. As evaluated by neurology, this is not likely a TIA or CVA but most likely it is brachial plexopathy. Carotid Doppler, echo results are normal. Patient underwent MRI cervical spine, MRI of the brain. We'll follow-up on the results. If negative then he will be discharged home on his home medications as well as a baby aspirin. Patient wants to switch his primary care doctor to some one in the area. Will provide him referral for .
--- NOTE | 2016-09-23 11:15 | NUR ---
BACK FROM MRI. ALERT ORIENTED X3. PLACED BACK ON TELE. CALL [facility] IN [place].
[2016-09-23 11:30] VITALS: BP 142/86
--- NOTE | 2016-09-23 13:20 | PN- Neurology ---
Subjective Subjective: Reports some subjective improvement in left upper extremity strength. No new or additional symptomatology since admission. Review of Systems: Denies diplopia, dysarthria, gait ataxia, lower extremity weakness or sphincteric disturbance Objective Vital Signs and I&Os Vital Signs Date Time Temp Pulse Resp B/P B/P Pulse O2 O2 Flow FiO2 Mean Ox Delivery Rate 09/23 1130 92 142/86 09/23 0900 98.0 87 16 160/84 96 Room Air 09/23 0121 98.3 79 18 142/78 96 Room Air 09/22 1428 98.0 82 18 148/88 95 Room Air Intake & Output 09/23 1600 09/23 0800 09/23 0000 09/22 1600 09/22 0800 09/22 0000 Intake Total 720 Output Total Balance 720 Intake, Oral 720 Patient 200 lb 203 lb 203 lb Weight Weight Estimated Reported by Patient Reported by Patient Measurement Method Middle-aged male in no acute distress. Higher cortical function intact. Speech fluent. Pupils are equal and reactive. Extraocular movements were full. Face was symmetric. There was no dysarthria. Motor examination showed 4 over 5 weakness of the left upper extremity, both proximal and distal however somewhat improved from yesterday's examination. Deep tendon reflexes were symmetrically hypoactive in the upper extremities. Plantar responses were flexor. The gait was narrow based and steady. Current Medications: Current Medications Sig/Nadia Start time Last Medication Dose Route Stop Time Status Admin Acetaminophen 650 MG .STK-MED ONE 09/22 1702 DC PO 09/22 1703 Acetaminophen 650 MG Q6P PRN 09/21 2315 AC 09/22 PO 1703 Aspirin 81 MG DAILY 09/22 1000 AC 09/23 PO 1126 Atorvastatin Calcium 80 MG 1700 09/22 1700 AC 09/22 PO 1703 Enoxaparin Sodium 40 MG DAILY 09/22 1000 AC 09/23 SC 1127 Folic Acid 1 MG DAILY 09/22 1000 AC 09/23 PO 1126 Ibuprofen 600 MG ONCE ONE 09/23 0930 DC 09/23 PO 09/23 0931 1126 Insulin Aspart 0 TIDAC 09/22 0800 AC 09/23 SC 1305 Lorazepam 0 Q1P PRN 09/22 0600 AC IV Multivitamins 1 TAB DAILY 09/22 1000 AC 09/23 Therapeutic PO 1126 Sodium Chloride 1,000 ML .Q10H 09/21 2300 DC 09/22 IV 09/22 1859 1127 Thiamine HCl 100 MG DAILY 09/22 1000 AC 09/23 PO 1126 Assessment/Plan Assessment: Stable neurologically. Clinical suspicion again more consistent with lower motor neuron neurapraxia, likely of the brachial plexus as opposed to stroke syndrome. His power appears somewhat improved from initial examination. Plan: Awaiting results of MRIs. PT and OT recommended. Continue ASA and a statin. Should MRIs be nondiagnostic, may discharge from our standpoint with plans for follow-up in our office within several weeks time.
--- NOTE | 2016-09-23 13:35 | MRI REPORT ---
MRI OF THE BRAIN WITHOUT IV CONTRAST MRI CERVICAL SPINE WITHOUT IV CONTRAST INDICATION: Left arm weakness and right hand numbness. COMPARISON: Head CT 09/21/2016. TECHNIQUE: Multiplanar multisequence MR imaging of the brain and cervical spine are obtained without IV contrast. FINDINGS: BRAIN MRI: There is no hydrocephalus, extra-axial surface collection, or herniation. There is no parenchymal signal abnormality. The major flow voids at the skull base are preserved. There is no acute infarct on diffusion-weighted imaging. There is no intracranial hemorrhage on the gradient recalled echo acquisition. Arachnoid granulation within the superior sagittal sinus. The midline structures are normal. The cerebellar tonsils are normally positioned. The cerebellum and brainstem are normal. The craniocervical junction is normal. Osseous marrow signal intensity is homogenous. The visualized soft tissues are unremarkable. CERVICAL SPINE MRI: Straightening the cervical lordosis. Vertebral body heights are overall maintained. There is mild disc volume loss at the C5-C6 and C6-C7 levels. There is no bone marrow edema. There are no acute fractures. Craniocervical junction is normal. Assessment for cord signal abnormality is limited by the degree of artifact with none definitively seen. The cervical arterial flow voids are maintained. There are no significant soft tissue findings. C2-C3: Disc contour remains normal. There is left-sided hypertrophic facet arthropathy resulting in mild left foraminal narrowing. No central canal and no right foraminal stenosis. C3-C4: There is a shallow right paracentral disc protrusion which mildly indents the ventral thecal sac without resulting in significant central canal stenosis. Left-sided uncovertebral joint spurring results in moderate left-sided foraminal narrowing. No right foraminal stenosis. C4-C5: There is a broad-based disc protrusion that indents the ventral thecal sac and slightly flattens the ventral cord, resulting in mild narrowing of the central canal. Left greater than right uncovertebral joint hypertrophy and hypertrophic facet arthropathy with moderate left-sided foraminal stenosis. No right foraminal stenosis. C5-C6: There is a broad-based disc protrusion that is eccentric to the left side which indents the ventral thecal sac and minimally flattens the ventral cord, resulting in mild narrowing of the central canal. There is left greater than right uncovertebral joint hypertrophy and hypertrophic facet arthropathy resulting in moderate left and mild right foraminal narrowing. C6-C7: There is a broad-based disc protrusion that indents the ventral thecal sac and minimally flattens the ventral cord, resulting in mild central canal stenosis. Bilateral uncovertebral joint hypertrophy and hypertrophic facet arthropathy resulting in moderate left and mild right foraminal stenosis. C7-T1: Small central disc protrusion that is eccentric to the left that minimally indents the ventral thecal sac without central canal stenosis. Left greater than right uncovertebral joint spurring and hypertrophic facet arthropathy with mild left-sided foraminal narrowing. IMPRESSION: - Unremarkable MRI of the brain. No acute infarcts. - Multilevel cervical spondylosis. There are small disc protrusions at the C3-C4 through the C7-T1 levels, resulting in mild central canal stenosis and slight flattening of the ventral cord at the C4-C5, C5-C6, and C6-C7 levels. Multifactorial degenerative changes result in moderate left-sided foraminal stenosis at the C3-C4, C4-C5, C5-C6, and C6-C7 levels.
--- NOTE | 2016-09-23 15:06 | Discharge Summary ---
Hospital Course Course Consulting Request: Consulting Specialty: Neurology Consulting Physician: Dr. Vallejo Reason for Consult: CVA Allergies: Coded Allergies: No Known Allergies (09/21/16) Discharge Instructions Medications at Discharge Discharge Medications: Continue taking these medications: Atorvastatin Calcium (Atorvastatin Calcium) 40 MG TABLET 1 Tablet ORAL DAILY Qty = 90 Comments: Last Taken: 09/22/16 Time: 5 pm Metformin HCl (Metformin HCl) 1,000 MG TABLET 1 Tablet ORAL TWICE DAILY Qty = 180 Comments: NOT GIVEN IN HOSPITAL. NOVOLOG GIVEN INSTEAD Losartan Potassium (Losartan Potassium) 100 MG TABLET 1 Tablet ORAL DAILY Qty = 90 Comments: NOT GIVEN IN HOSPITAL Multivitamin (Multi-Day Vitamins) 1 EACH TABLET 1 Tablet ORAL DAILY Comments: NOT GIVEN IN HOSPITAL Start taking the following new medications: Aspirin (Aspirin*) 81 MG TAB.CHEW 1 Tablet ORAL DAILY Qty = 30 No Refills Comments: Last Taken: 09/23/16 Time: 11:30 AM
--- NOTE | 2016-09-23 15:41 | Discharge Summary ---
Visit Information Visit Dates Admission Date: 09/21/16 Discharge Date: 09/23/2016 Hospital Course Course Attending Physician: SANTIAGO KINCAID MD Primary Care Physician: UNKNOWN Consulting Request: Consulting Specialty: Neurology Consulting Physician: Dr. Vallejo Reason for Consult: CVA Hospital Course: This is a 51-year-old male with past medical history significant for hypertension, hyperlipidemia, diabetes mellitus presented to Hospital emergency department with chief complaint of left arm,hand weakness, numbness and right hand numbness. Vitals: Afebrile, HR 116 on presentation, decreased to 90s, RR 16, blood pressure 161/91, saturating well on room air. On examination: A O 3, cooperative, no acute distress, neck supple, JVD normal, no lymphadenopathy, mucosa moist, right upper extremity weakness with proximal and distal muscle groups, no obvious pronator drift but patient drops his hand up on prolonged extension, 4/5 hand deputy [place] counsel strength on left, cranial nerves intact , sensation is intact. ? Past-pointing on left side probably secondary to weakness. Gait normal. no dependent edema, no obvious skin rashes or inflammation CVS: S1-S2, RRR. RS: Clear to auscultate bilaterally. Abdomen: Soft , NT, ND, bowel sounds present. Labs: WBC 14.9, neutrophils 79% BMP and LFT unremarkable, troponin less than 0.01 EKG: Normal sinus rhythm CXR: No acute cardiopulmonary process CT head and cervical spine without IV contrast: 1. No acute intracranial hemorrhage 2. There is multilevel degenerative spondylosis of the cervical spine. No evidence of acute fracture or traumatic subluxation. Patient was admitted on telemetry floor. He was started on aspirin and high- dose statin. He was seen by neuro, Dr. Vallejo Who did not believe that this presentation represents stroke syndrome. He thought that it could be a brachial plexopathy and carpal tunnel syndrome. He recommended to order MRI head and cervical spine. Cervical multi-radiculopathy or cervical myeloradiculopathy were in differentials too. [id number] DOPPLER No evidence of a hemodynamically significant stenosis involving the internal carotid arteries. ECHOCARDIOGRAM CONCLUSIONS: Normal global left ventricular size, wall thickness, systolic function with no obvious regional wall motion abnormalities. Left ventricular ejection fraction is estimated at > 55 %. Normal right ventricular size and function. Unable to estimate the right ventricular systolic pressure. No pericardial effusion. MRI-CERVICAL SPINE; MRI-HEAD W/O MOLLY IMPRESSION: - Unremarkable MRI of the brain. No acute infarcts. - Multilevel cervical spondylosis. There are small disc protrusions at the C3-C4 through the C7-T1 levels, resulting in mild central canal stenosis and slight flattening of the ventral cord at the C4-C5, C5-C6, and C6-C7 levels. Multifactorial degenerative changes result in moderate left-sided foraminal stenosis at the C3-C4, C4-C5, C5-C6, and C6-C7 levels. Physical therapy and occupational therapy was also started heparin hospital. A patient was feeding some improvement of his left arm weakness but still complaining of pains in medial sensation in his both hands. Diagnostic imaging including MRI head, carotid Doppler ultrasound and echocardiogram were unremarkable. MRI cervical spine showed cervical spondylosis and disc protrusions with mild central canal stenosis. Patient was updated about his test results. He was discharged on aspirin. All of his other home medications were continued. He was advised to follow-up with Dr. Vallejo as an outpatient. According to his recommendations he may likely benefit from an EMG and nerve conduction study however one would wait approximately 3 weeks following onset of symptoms to properly assess for denervation. Patient was also given prescription for outpatient occupational therapy. He was advised to better control his blood pressure and diabetes. Patient also wanted to switch his primary care doctor so he was given referral for Dr. Helton. Allergies: Coded Allergies: No Known Allergies (09/21/16) Disposition Summary Disposition Principal Diagnosis: Cervical spondylosis and disc herniation with mild central canal stenosis Additional Diagnosis: none Discharge Disposition: home or self care Discharge Instructions General Discharge Information Code Status: Full Code Patient's Diet: Diabetic diet Patient's Activity: Independent Follow-Up Instructions/Appts: 1. Please follow-up with [facility], Dr. Helton next week after discharge 2. Please follow-up with Dr. Vallejo next week after discharge Medications at Discharge Discharge Medications: Continue taking these medications: Atorvastatin Calcium (Atorvastatin Calcium) 40 MG TABLET 1 Tablet ORAL DAILY Qty = 90 Comments: Last Taken: 09/22/16 Time: 5 pm Metformin HCl (Metformin HCl) 1,000 MG TABLET 1 Tablet ORAL TWICE DAILY Qty = 180 Comments: NOT GIVEN IN HOSPITAL. NOVOLOG GIVEN INSTEAD Losartan Potassium (Losartan Potassium) 100 MG TABLET 1 Tablet ORAL DAILY Qty = 90 Comments: NOT GIVEN IN HOSPITAL Multivitamin (Multi-Day Vitamins) 1 EACH TABLET 1 Tablet ORAL DAILY Comments: NOT GIVEN IN HOSPITAL Start taking the following new medications: Aspirin (Aspirin*) 81 MG TAB.CHEW 1 Tablet ORAL DAILY Qty = 30 No Refills Comments: Last Taken: 09/23/16 Time: 11:30 AM Copies To: ALDO COTE,ILDA Cramer; MYNOR COTE,RD
== END 2016-09-23 16:30 | DRG 552 ==
LOC: ERH 16:49 → ERHI 21:22 → 1NO 21:22 → ERHI 21:22 → ENRESERV 23:44 → CANRESERV 23:44 → ERHI 09-22 08:10 → ENRESERV 09-22 13:30 → ENTRNSPT 09-22 14:04 → EDTRNSPTTYP 09-22 14:08 → 1NO 09-22 14:16 → CMPTRNSPT 09-22 14:33 → 1NO 09-22 22:03
PROVIDERS: Internal Medicine Cardiovascular Disease; Pediatrics; ADMIT Internal Medicine
DX: M47.892 Other spondylosis, cervical region (principal); E11.65 Type 2 diabetes mellitus with hyperglycemia; M50.21 Other cervical disc displacement, high cervical region; M48.02 Spinal stenosis, cervical region; I10 Essential (primary) hypertension; E78.5 Hyperlipidemia, unspecified; Z79.84 Long term (current) use of oral hypoglycemic drugs
CPT/HCPCS: 1NSP; 70551; 72141; ERO; 82436; 93005; 93010; 93306; 97165-GO; J1650; J3490